=== PATIENT | female | born 1955 | race Caucasian/White ===

== ENCOUNTER 2020-11-10 12:16 | Emergency (ER) | payer MEDICAID ==
[~2020-11-10] VITALS: Ht 162.6 cm; Wt 81.3 kg
[~2020-11-10 12:16] MED LIST: LORA10CA PO; METH750T2 PO; NAPR-856 PO
--- NOTE | 2020-11-10 12:39 | NUR ---
PT CAME IN CO OF RIGHT FLANK PAIN AND NV. PT STATES "MY BED I SLEEP ON IS REALLY HARD AND UNCOMFORTABLE AND FOR A WHILE I THOUGHT MY BACK WAS HURTING BECAUSE OF THE BED BUT THIS MORNING I HAVE NAUSEA AND AND EPISODE OF VOMITTING. IM REALLY SCARED". PT RESTING IN GURNEY. PT IN BATHROOM TRYING TO PROVIDE UA AT THIS TIME. AMBULATED WITH STEADY GATE TO RESTROOM.
--- NOTE | 2020-11-10 13:11 | NUR ---
DR ARCOS HAS SEEN PATIENT. VS STABLE. NO ACUTE DISTRSS NOTED. CALL LIGHT IN PLACE. WILL CONTINUE TO MONITOR.
[2020-11-10] MEDS ORDERED: CYCLOBENZAPRINE 10 MG TABLET ONE (13:15)
[2020-11-10] MEDS ORDERED: ONDANSETRON ODT 8 MG ONE (13:15)
[2020-11-10 13:30] VITALS: BP 151/75
[2020-11-10] MEDS ORDERED: ONDANSETRON ODT 8 MG PO ONE (13:30)
[2020-11-10] MEDS ORDERED: CYCLOBENZAPRINE 10 MG TABLET PO ONE (13:30)
--- NOTE | 2020-11-10 13:41 | NUR ---
PT REPORTS SHE IS WALKING NOT DRIVING. VS STABLE. PT READY FOR DC.
== END 2020-11-10 13:43 | disposition home or self-care (01) ==
LOC: ED 12:49
DX: M54.5 Low back pain (principal); R35.0 Frequency of micturition; R11.0 Nausea
CPT/HCPCS: 99283; Q0162